=== PATIENT | male | born 1950 | race African-American/Black ===

== ENCOUNTER 2018-12-10 17:59 | Emergency (ER) | payer OTHER, MEDICARE, SELFPAY | END 2018-12-10 21:00 | disposition home or self-care (01) | PROVIDERS: Emergency Provider Emergency Medicine; Referring Provider Family Medicine; Visit Provider Emergency Medicine | DX: S86.012A Strain of left Achilles tendon, initial encounter (principal); E78.5 Hyperlipidemia, unspecified; I25.10 Atherosclerotic heart disease of native coronary artery without angina pectoris; I10 Essential (primary) hypertension; I48.91 Unspecified atrial fibrillation; K21.9 Gastro-esophageal reflux disease without esophagitis; Z95.5 Presence of coronary angioplasty implant and graft; Z87.19 Personal history of other diseases of the digestive system; X50.9XXA Other and unspecified overexertion or strenuous movements or postures, initial encounter | CPT/HCPCS: 99284; 29515; 73610 ==

== ENCOUNTER 2023-03-03 09:45 | Outpatient (CLI) | payer MEDICARE, SELFPAY ==
--- NOTE | ~2023-03-03 | XR_ITS ---
EXAMINATION:XR_[id number]_CR DATE: 03/03/2023 10:08 INDICATION: Neck pain TECHNIQUE: AP, lateral, and odontoid views of the cervical spine are provided. COMPARISON: None FINDINGS: There are 2 mm of retrolisthesis of C3 on C4 and C5 on C6. The odontoid process is intact. No fracture is identified. There is moderate loss of intervertebral disc space height at C3-4, C5-6, and C6-7. Prevertebral soft tissues are normal. Small degenerative osteophytes project from the anter ior endplates of multiple vertebral bodies. 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 IMPRESSION: 1. Severe cervical spondylosis without acute findings. Reviewed, dictated and finalized at location B.
== END 2023-03-03 09:46 | disposition home or self-care (01) ==
PROVIDERS: PCP Family Medicine; Visit Provider Family Medicine
DX: M47.892 Other spondylosis, cervical region (principal)
CPT/HCPCS: 72040

== ENCOUNTER 2023-08-11 10:04 | Outpatient (CLI) | payer MEDICARE, SELFPAY ==
--- NOTE | ~2023-08-11 | XR_ITS ---
EXAMINATION: XR lumbar spine 2-3V DATE: 08/11/2023 10:27 INDICATION: Low back pain TECHNIQUE: Anteroposterior and lateral views of the lumbar spine, and cone-down lateral view of the l umbosacral junction were obtained. COMPARISON: 07/10/2004 FINDINGS: There are 7 mm of anterolisthesis of L4 on L5. There is moderate loss of intervertebral dis c space height at L4-5 and severe loss of intervertebral disc space height at L5-S1. The vertebral alton dy heights are maintained. There is no fracture. There is moderate facet joint osteoarthritis of the lower lumbar spine. Changes of pelvic lymph node dissection are noted. A right upper quadrant calcifi cations may reflect cholelithiasis. IMPRESSION: 1. Severe lower lumbar spondylosis without acute findings. Reviewed, dictated and finalized at location B. [employer]
== END 2023-08-11 10:05 | disposition home or self-care (01) ==
PROVIDERS: PCP Family Medicine; Visit Provider Family Medicine
DX: M47.896 Other spondylosis, lumbar region (principal)
CPT/HCPCS: 72100